=== PATIENT | female | born 1970 | race Caucasian/White ===

== ENCOUNTER 2018-07-14 18:36 | Emergency (ER) | payer OTHER ==
[~2018-07-14] VITALS: Ht 160 cm; Wt 71.2 kg
[2018-07-14 19:51] LABS: BASOPHIL % 0.3 % (0-2); PLATELET COUNT 261 x10^3mcL (130-400); RED CELL DISTRIBUTION WIDTH 13.2 % (11.5-14.5)
[2018-07-14 19:53] LABS: CALCIUM 8.7 mg/dL (8.5-10.1); CARBON DIOXIDE 30.4 mmol/L (21-32); CHLORIDE SERUM 102 mmol/L (98-107); CREATININE SERUM 0.8 mg/dL (0.6-1.0); GFR1 > 60 mL/min; GLUCOSE SERUM 97 mg/dL (74-106); POTASSIUM SERUM 4.2 mmol/L (3.5-5.1); SODIUM SERUM 137 mmol/L (136-145)
[2018-07-14 19:58] LABS: ALBUMIN 3.5 g/dL (3.4-5.0); ALKALINE PHOSPHATASE 61 U/L (46-116); ALT/SGPT 37 U/L (14-59); AST/SGOT 19 U/L (15-37); BILIRUBIN TOTAL 0.21 mg/dL (0.20-1.00); TOTAL PROTEIN, SERUM 7.3 g/dL (6.4-8.2)
[2018-07-14 20:25] LABS: microscopic required? YES; urine erythrocyte 1+ (NEGATIVE)
[2018-07-14 21:56] VITALS: BP 132/80
== END 2018-07-14 21:56 | disposition home or self-care (01) ==
LOC: ED 18:36
PROVIDERS: Emergency Medicine
DX: R42 Dizziness and giddiness (principal); R53.1 Weakness; R11.0 Nausea
CPT/HCPCS: 36415